=== PATIENT | male | born 1960 | race Caucasian/White ===

== ENCOUNTER → 2017-03-09 | Outpatient (CLI) | payer BC | END | disposition home or self-care (01) | LOC: PCVCIMAG 08:37 | PROVIDERS: ATTEND Internal Medicine Cardiovascular Disease | DX: I35.0 Nonrheumatic aortic (valve) stenosis (principal); I10 Essential (primary) hypertension; E78.00 Pure hypercholesterolemia, unspecified | CPT/HCPCS: 93306 ==

== ENCOUNTER → 2019-09-23 | Outpatient (CLI) | payer BC, OTHER ==
--- NOTE | 2019-09-23 17:43 | PCVCIMAG ---
APPROVED REPORT Study performed: 09/23/2019 13:13:30 EXAM: Comprehensive 2D, Doppler, and color-flow Echocardiogram Patient Location: Echo lab Status: routine BSA: 2.13 HR: 80 bpmBP: 116/78 mmHg Rhythm: NSR Other Information Study Quality: Adequate Risk Factors: Cardiac Risk Factors: HTN Indications Severe Aortic Stenosis, bicuspid aortic valve 2D Dimensions IVSd: 13.73 (7-11mm)LVOT Diam: 22.17 (18-24mm) LVDd: 29.47 mm PWd: 14.97 (7-11mm)Ascending Ao: 42.68 (22-36mm) LVDs: 20.30 (25-40mm) Left Atrium: 30.41 (27-40mm) Aortic Root: 39.63 mm LV Single Plane 4CH: 63.56 % LV Single Plane 2CH: 62.60 % Biplane EF: 62.8 % Volumes Left Atrial Volume (Systole) Single Plane 4CH: 54.15 mLSingle Plane 2CH: 60.37 mL LA ESV Index: 28.00 mL/m2 Aortic Valve AoV Peak Jamarcus.: 5.37 m/s AO Peak Gr.: 115.33 mmHgLVOT Max P.05 mmHg AO Mean Gr.: 60.90 mmHgLVOT Mean P.91 mmHg AO V2 Mean: 3.52 m/sLVOT Max V: 1.23 m/s AO V2 VTI: 118.24 cmLVOT Mean V: 0.94 m/s SAMREEN (VTI): 0.87 [id number] V1 VTI: 26.72 cm SAMREEN Vmax: 0.88 cm2 SV (LVOT): 103.10 mL Mitral Valve E/A Ratio: 0.8 MV Decel. Time: 323.24 ms MV E Max Jamarcus.: 1.15 m/s MV A Jamarcus.: 1.46 m/s IVRT: 100.35 ms Pulmonary Valve PV Peak Jamarcus.: 1.04 m/sPV Peak Gr.: 4.29 mmHg Pulmonary Vein P Vein S: 0.27 m/sP Vein A: 0.37 m/s P Vein D: 0.34 m/sP Vein A Dur.: 121.1 msec P Vein S/D Ratio: 0.79 Tricuspid Valve TR Peak Jamarcus.: 2.68 m/s TR Peak Gr.: 28.76 mmHg Left Ventricle The left ventricle is normal size. There is normal LV segmental wall motion. Moderate concentric left ventricular hypertrophy. Left ventricular systolic function is normal. The left ventricular ejection fraction is within the normal range. LVEF is 60-65%. Grade I - abnormal relaxation pattern. Right Ventricle The right ventricle is normal size. The right ventricular systolic function is normal. Atria The left atrium size is normal. The right atrium size is normal. Aortic Valve The aortic valve is severely calcified. The aortic valve is bicuspid. No aortic regurgitation is present. There is severe valvular aortic stenosis. Calculated aortic valve area is .9 cm2 with maximum pressure gradient of 115 mmHg and mean pressure gradient of 61 mmHg. Mitral Valve The mitral valve is normal in structure. There is no mitral valve regurgitation noted. No evidence of mitral valve stenosis. Tricuspid Valve The tricuspid valve is normal in structure. Mild tricuspid regurgitation with PAP of 36 mmHg. Pulmonic Valve The pulmonary valve is normal in structure. Trace pulmonic regurgitation. 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 IVC is normal in size and collapses >50% with inspiration. Pericardium There is no pericardial effusion. There is no pleural effusion. <Conclusion> The left ventricle is normal size. Moderate concentric left ventricular hypertrophy. LVEF is 60-65%. Grade I - abnormal relaxation pattern. The right ventricle is normal size. The right ventricle is normal size. The left atrium size is normal. The aortic valve is severely calcified. The aortic valve is bicuspid. There is severe valvular aortic stenosis. Calculated aortic valve area is .9 cm2 with maximum pressure gradient of 115 mmHg and mean pressure gradient of 61 mmHg. There is no mitral valve regurgitation noted. Mild tricuspid regurgitation with PAP of 36 mmHg. 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 There is no pericardial effusion.
--- NOTE | 2019-09-23 18:05 | PCVCIMAG ---
APPROVED REPORT Patient Location: Room #: Stress Nurse: Conclusion #1 patient stopped secondary to fatigue and shortness of breath no production of chest pain angina or lightheadedness reproduced. #2 no diagnostic EKG changes no significant ectopy no evidence of ischemic response #3 excellent exercise tolerance with appropriate hemodynamic response no evidence of dysrhythmia. Impression normal treadmill stress test exhibiting excellent exercise tolerance and appropriate hemodynamic response. (Patient with significant aortic stenosis moderately severe in nature excellent functional capacity)
== END ==
LOC: PCVCIMAG 13:27
PROVIDERS: ATTEND Internal Medicine Cardiovascular Disease
DX: I11.9 Hypertensive heart disease without heart failure (principal); I08.2 Rheumatic disorders of both aortic and tricuspid valves; E78.00 Pure hypercholesterolemia, unspecified; Z72.89 Other problems related to lifestyle
CPT/HCPCS: 93017; 93306